=== PATIENT | male | born 1985 | race Caucasian/White ===

== ENCOUNTER → 2022-01-18 | Day surgery (SDC) | payer OTHER ==
[~2022-01-18] MED LIST: 0.9 % SODIUM CHLORIDE 10 ML VIAL. IJ ONE; ACETAMINOPHEN 500 MG TABLET PO ONE; CELE100C PO; CURC10PO MC; DEXAMETHASONE SOD PHOS 4 MG/ML VIAL. ONE; ECHI125T2 PO; FISH400C4 PO; GELATIN SPONGE SIZE 12-7MM SPONGE. ONE; GELATIN SPONGE SIZE 12-7MM SPONGE. TP ONE; GLYCOPYRROLATE 1 MG/5 ML VIAL. ONE; IPRATRPIUM/ALBUTEROL 0.5/2.5MG 3 ML NEBU. NEB PRN; IV RINGERS SOLUTION,LACTATED 1,000 ML IV SCH; KETOROLAC 30 MG/ML VIAL. ONE; LACT1CAP6 PO; LIDOCAINE 1%/EPI 1:100,000 20 ML VIAL. IJ ONE; LIDOCAINE 1%/EPI 1:100,000 20 ML VIAL. ONE; LIDOCAINE 2% PF 5 ML VIAL. ONE; MIDAZOLAM HCL PF 2 MG/2 ML VIAL. IV ONE; MIDAZOLAM HCL PF 2 MG/2 ML VIAL. ONE; MULT-659 PO; ONDANSETRON PF 4 MG/2 ML VIAL. IV PRN; ONDANSETRON PF 4 MG/2 ML VIAL. ONE; OXYMETAZOLINE 0.05% NASAL SPRAY 30ML BOTTLE. NS ONE; PROPOFOL 10,000 MCG/ML (20ML) VIAL IV ONE; ROCURONIUM 50 MG/5 ML VIAL. ONE; SEVOFLURANE 61 TO 120 MINUTES. IH ONE; SUCCINYLCHOLINE 200 MG/10 ML VIAL. ONE; VIT D3 PO; VITA0.4T4 PO; VITA100T7 PO
[2022-01-18 11:30] VITALS: BP 115/78
--- NOTE | 2022-01-25 20:42 | OP ---
DATE OF SURGERY: 01/18/2022 PREOPERATIVE DIAGNOSIS: Deviated nasal septum with turbinate hypertrophy. POSTOPERATIVE DIAGNOSIS: Deviated nasal septum with turbinate hypertrophy. PROCEDURE PERFORMED: Nasal septoplasty with radiofrequency reduction of the inferior turbinates. INDICATIONS: Nasal obstruction. ANESTHESIA: General anesthetic. BLOOD LOSS: Less than 20 mL. DESCRIPTION OF PROCEDURE: The patient was brought to the operating room and placed on the operating room table in supine position. He was given a general anesthetic. His nose was then prepped and draped by applying povidine Iodine swabs to the interior of the nose and to the face. The nose had been decongested with topical application of Afrin. Examination of the nose confirmed the septal deviation, which caused probable airway obstruction, potentially on the left side of the nose with associated turbinate hypertrophy. There was also some displacement of the columella into the left side of the nose. The septum was then infiltrated with 1% lidocaine with epinephrine and cottonoids placed in the nose, after which the nose was then prepped and draped after sterile fashion. A curvilinear incision was then made along the mucocutaneous border of the nose and the mucous membrane was elevated off of the septum. The dislocation of the columella from the premaxillary crest into the left side of the nose was addressed as soft tissue was allowing the septum to be exposed. A deformed portion of the septum was then removed as a small sliver, which allowed the cartilaginous portion of the septum to return to the premaxillary crest. Separation of the mucosa from the septal deviation was accomplished, then a crossover incision was made. The cartilage was mobilized and moved to midline position. Some scoring was also implicated to give the cartilage more perpendicular stabilization. Perpendicular to the point of the ethmoid was then addressed and there was obvious bony deformity there. Some of that portion was removed using a Blakesley forceps, which allowed the septum to be positioned in the midline. The mucosa was sustained and remained intact. No active bleeding of significance was noted. The septum was now in a more midline structure and the incision site was closed using 4-0 chromic absorbable suture. Also, a quilting pattern was used to compress and approximate the elevated mucous membrane. The turbinates were addressed by injecting a small amount of normal saline into the anterior portion of the inferior turbinate and then placing a radiofrequency Coblation wand within the soft tissue and applying radiofrequency energy, which resulted in contraction of the turbinate. This was accomplished most significantly on the right side, but there was some turbinate reduction that was accomplished in the left side of the nose. It should be noted that the cartilage that was removed from the nose was not submitted for pathological evaluation. After the procedure was completed, the patient's nose was irrigated and suctioned. No active bleeding was occurring. The closed incision sites were intact and no separation was noted. Gelfoam was then placed in the nose to provide the nose stability and the procedure was completed. The patient was then recovered from his anesthesia and taken to the recovery room in stable condition. SYDNEY DR: Gisselle TID: [id number]
== END | disposition home or self-care (01) ==
LOC: SURG 07:45
PROVIDERS: ATTEND Otolaryngology
DX: J34.2 Deviated nasal septum (principal); J34.3 Hypertrophy of nasal turbinates; Z72.89 Other problems related to lifestyle
CPT/HCPCS: 30520; 30801; J0171; J0330; J0696; J1100; J1885; J2001; J2250; J2405; J2704; J3010; J3490; J7120